=== PATIENT | female | born 1990 | race Caucasian/White ===

== ENCOUNTER 2018-06-13 12:25 | Emergency (ER) | payer OTHER ==
[2018-06-13 12:54] VITALS: BP 138/82; PULSE 81; RESP 16; TEMP 98; O2SAT 100
[2018-06-13] MEDS ORDERED: Albuterol-Ipratrop 3 mg / 0.5 (3 ml) UD IH STA (13:31)
[2018-06-13] MEDS ORDERED: Albuterol-Ipratrop 3 mg / 0.5 (3 ml) UD ONE (13:39)
--- NOTE | 2018-06-13 14:02 | RAD ---
Date of service: 06/13/2018 HISTORY: productive cough, rales in the left COMPARISON: No prior. TECHNIQUE: Chest PA and lateral FINDINGS: LUNGS: No active pulmonary disease. PLEURA: No significant pleural effusion identified. No pneumothorax apparent. CARDIOVASCULAR: Normal. OSSEOUS STRUCTURES: No significant abnormalities. VISUALIZED UPPER ABDOMEN: Normal. OTHER FINDINGS: None. IMPRESSION: No active disease.
--- NOTE | 2018-06-13 14:43 | C.PDOC ---
History Of Present Illness 28 y/o female presents to the ED complaining of a productive cough for 2 weeks. Cough is productive of yellow sputum. Patient states she has started feeling some left-sided chest pain with deep inspiration and when coughing. Otherwise she denies any fever, chills, sore throat, shortness of breath, or wheezing. Time Seen by Provider: 06/13/18 13:11 Chief Complaint (Nursing): Cough, Cold, Congestion History Per: Patient History/Exam Limitations: no limitations Onset/Duration Of Symptoms: Days Current Symptoms Are (Timing): Still Present Past Medical History Reviewed: Historical Data, Nursing Documentation, Vital Signs Vital Signs: Last Vital Signs Temp 98 F 06/13/18 12:46 Pulse 81 06/13/18 12:46 Resp 16 06/13/18 12:46 BP 138/82 06/13/18 12:46 Pulse Ox 100 06/13/18 17:06 - Medical History PMH: No Chronic Diseases Surgical History: No Surg Hx Family History: States: No Known Family Hx - Social History Hx Alcohol Use: No Hx Substance Use: No - Immunization History Hx Tetanus Toxoid Vaccination: No Hx Influenza Vaccination: No Hx Pneumococcal Vaccination: No Review Of Systems Except As Marked, All Systems Reviewed And Found Negative. Constitutional: Negative for: Fever, Chills, Malaise, Weight loss ENT: Negative for: Throat Pain Cardiovascular: Positive for: Chest Pain (when coughing) Respiratory: Positive for: Cough, Sputum. Negative for: Shortness of Breath, Wheezing Physical Exam - Physical Exam Appears: Non-toxic, No Acute Distress Skin: Normal Color, Warm, No Rash Head: Atraumatic, Normacephalic Eye(s): bilateral: Normal Inspection Nose: Normal Oral Mucosa: Moist Neck: Normal ROM, Supple Chest: Symmetrical, No Tenderness Cardiovascular: Rhythm Regular, No Murmur Respiratory: No Accessory Muscle Use, Rales (noted to the left lower lung), No Rhonchi, No Wheezing, Other (No acute respiratory distress) Extremity: Bilateral: Atraumatic, Normal Color And Temperature, Normal ROM Pulses: Left Radial: Normal, Right Radial: Normal Neurological/Psych: Oriented x3, Normal Speech ED Course And Treatment O2 Sat by Pulse Oximetry: 100 (RA) Pulse Ox Interpretation: Normal - Radiology CXR: Viewed By Me, Read By Radiologist CXR Interpretation: Yes: No Acute Disease. No: Infiltrates Progress Note: Patient treated with duoneb x1 in the ED. CXR obtained, and shows no infiltrates. On reevaluation patient reports improvement and is stable for discharge home.Counseled patient regarding diagnosis of bronchitis and started on Zithromax. Provided with prescriptions for Zithro, tessalon perles, and albuterol inhaler. Advised patient to follow up with PMD for further evaluation. Disposition Counseled Patient/Family Regarding: Studies Performed, Diagnosis, Need For Followup, Rx Given - Disposition Disposition: HOME/ ROUTINE Disposition Time: 14:41 Condition: STABLE Additional Instructions: Follow up with your PMD within 1-2 days. Return to ED if feel worse. 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 - Scribe Statement The provider has reviewed the documentation as recorded by the Scribe (Nelly Hickey) All medical record entries made by the Scribe were at my direction and personally dictated by me. I have reviewed the chart and agree that the record accurately reflects my personal performance of the history, physical exam, medical decision making, and the department course for this patient. I have also personally directed, reviewed, and agree with the discharge instructions and disposition.
== END 2018-06-13 14:57 | disposition home or self-care (01) ==
LOC: C.ER 12:25
DX: J40 Bronchitis, not specified as acute or chronic (principal)